=== PATIENT | male | born 1995 | race Hispanic/Latino ===

== ENCOUNTER 2017-10-11 19:41 | Emergency (ER) | payer SELFPAY ==
--- NOTE | 2017-10-11 20:54 | RAD ---
FOUR VIEWS SECOND AND THIRD DIGITS LEFT HAND: 10/11/17 HISTORY: Smashed between pipes yesterday with continued pain. AP, lateral and oblique views of second and third digits obtained. No evidence of fractures, subluxations or bony lesions seen. IMPRESSION: Normal three views of second and third digits left hand. POS: [facility]
== END 2017-10-11 20:48 | disposition home or self-care (01) ==
LOC: ERS 19:41
DX: S67.193A Crushing injury of left middle finger, initial encounter (principal); S67.191A Crushing injury of left index finger, initial encounter; Z87.891 Personal history of nicotine dependence; W23.0XXA Caught, crushed, jammed, or pinched between moving objects, initial encounter

== ENCOUNTER 2019-02-10 21:47 | Emergency (ER) | payer SELFPAY | END 2019-02-11 00:19 | disposition home or self-care (01) | LOC: ERS 21:47 | DX: B34.9 Viral infection, unspecified (principal); Z87.891 Personal history of nicotine dependence | CPT/HCPCS: 87804; 99283 ==

== ENCOUNTER 2019-08-30 13:59 | Emergency (ER) | payer SELFPAY ==
[2019-08-30] MEDS ORDERED: Ondansetron PF 4 MG/2 ML Vial ONE (14:29)
--- NOTE | 2019-08-30 14:50 | RAD ---
XR Chest 1 View Portable HISTORY: Body ache, nausea, vomiting COMPARISON: None FINDINGS: The heart size is normal. The lungs are well expanded without focal areas of consolidation, pneumothorax or pleural effusions. IMPRESSION: No radiographic evidence of acute cardiopulmonary process.
[2019-08-30 14:56] LABS: #Basophils 0.1 thou/uL (0.0-0.2); #Eosinphils 0.4 thou/uL (0.0-0.7); #Lymphocytes 2.5 thou/uL (1.20-3.40); #Monocytes 0.6 thou/uL (0.11-0.59); #Neutrophils 7.1 thou/uL (1.40-6.50); %Basophils 0.5 % (0.0-1.0); %Eosinophils 3.7 % (0.0-10.0); %Lymphocytes 23.8 % (21.0-51.0); %Monocytes 5.2 % (0.0-10.0); %Neutrophils 66.8 % (42.0-75.0); Hemoglobin 15.4 g/dL (14.0-18.0); Mean Corpuscular HGB CONC 33.3 g/dL (32.0-36.0); Mean Corpuscular Hemoglobin 28.9 pg (27.0-31.0); Mean Corpuscular Volume 86.7 fL (78.0-98.0); Mean Platelet Volume 7.2 fL (7.4-10.4); Platelet Count 259 thou/uL (130-400); RBC Distribution Width 11.9 % (11.5-14.5); Red Blood Cell (RBC) Count 5.33 mill/uL (4.70-6.10); White Blood Cell (WBC) Count 10.6 thou/uL (4.8-10.8)
[2019-08-30 15:19] LABS: ALT (SGPT) 27 U/L (8-55); AST (SGOT) 18 U/L (5-34); Albumin 4.3 g/dL (3.5-5.0); Alkaline Phosphatase 96 U/L (40-110); Anion Gap 12 mmol/L (10-20); BUN (Urea Nitrogen) 8 mg/dL (8.9-20.6); Bilirubin, Total 0.6 mg/dL (0.2-1.2); Calc. Creatinine Clearance 0 mL/min (70-130); Calcium 9.1 mg/dL (7.8-10.44); Carbon Dioxide 26 mmol/L (22-29); Chloride 104 mmol/L (98-107); Estimated GFR-MDRD Greater than 90; Globulin 3.1 g/dL (2.4-3.5); Glucose 87 mg/dL (70-105); Lipase 8 U/L (8-78); Potassium 4.2 mmol/L (3.5-5.1); Protein, Total 7.4 g/dL (6.0-8.3); Sodium 138 mmol/L (136-145)
== END 2019-08-30 16:55 | disposition home or self-care (01) ==
LOC: ERS 13:59
DX: R11.2 Nausea with vomiting, unspecified (principal); Z87.891 Personal history of nicotine dependence
CPT/HCPCS: 71045; 80053; 83690; 85025; 96361; 96374; J2405

== ENCOUNTER 2019-12-24 16:22 | Emergency (ER) | payer SELFPAY | END 2019-12-24 17:55 | disposition home or self-care (01) | LOC: ERS 16:22 | DX: J10.1 Influenza due to other identified influenza virus with other respiratory manifestations (principal); Z87.891 Personal history of nicotine dependence | CPT/HCPCS: 87081; 87430; 87804; 99283 ==